=== PATIENT | male | born 1940 | race Caucasian/White ===

== ENCOUNTER 2017-10-02 06:46 | Inpatient (IN) | payer OTHER, MEDICAID ==
[~2017-10-02] VITALS: Ht 162.6 cm; Wt 73.9 kg
[2017-10-02 06:51] VITALS: Ht 162.6 cm; Wt 73.9 kg
[2017-10-02 07:33] LABS: RED CELL DISTRIBUTION WIDTH 14.5 % (11.5-14.5)
[2017-10-02 07:34] LABS: PLATELET COUNT 126 x10^3mcL (130-400)
[2017-10-02 07:46] LABS: CALCIUM 8.1 mg/dL (8.5-10.1); CARBON DIOXIDE 25.6 mmol/L (21-32); CHLORIDE SERUM 102 mmol/L (98-107); CREATININE SERUM 1.3 mg/dL (0.7-1.3); GLUCOSE SERUM 168 mg/dL (74-106); SODIUM SERUM 139 mmol/L (136-145)
[2017-10-02 07:58] LABS: ALBUMIN 3.4 g/dL (3.4-5.0); ALKALINE PHOSPHATASE 122 U/L (46-116); ALT/SGPT 23 U/L (16-63); AST/SGOT 26 U/L (15-37); BILIRUBIN TOTAL 0.6 mg/dL (0.20-1.00); TOTAL PROTEIN, SERUM 7.7 g/dL (6.4-8.2)
[2017-10-02 07:59] LABS: T3 TOTAL 1.63 ng/mL
[2017-10-02 08:00] LABS: CK-MB 2.7 ng/mL (0-3.6)
[2017-10-02 08:01] LABS: C REACTIVE PROTEIN < 0.2 mg/dL (<=0.9)
[2017-10-02 08:42] LABS: ERYTHROCYTE SED RATE 17 mm/hr (0-20)
[2017-10-02 08:51] LABS: CHOLESTEROL/HDL RATIO 2.4; MAGNESIUM 1.3 mg/dL (1.8-2.4); PHOSPHOROUS 4.5 mg/dL (2.5-4.9)
[2017-10-02 08:52] LABS: BAND NEUTROPHIL 1 % (0-10); BASOPHIL 1 % (0-2); MONOCYTE 6 % (0-7); SEGMENTED NEUTROPHILS 55 % (37-75)
[2017-10-02 08:53] LABS: FREE T4 1.17 ng/dL (0.76-1.46); T4(THYROXINE) 9.8 ug/dL (4.7-13.3)
[2017-10-02 08:53] LABS: PLATELET MORPHOLOGY PLATELETS NORMAL
[2017-10-02 09:36] VITALS: BP 126/74
[2017-10-02 10:02] VITALS: BP 136/94
[2017-10-02 12:30] VITALS: BP 136/94
[2017-10-02 18:15] VITALS: BP 143/90
[2017-10-02 21:09] VITALS: BP 117/68
[2017-10-03 05:12] VITALS: BP 114/69
[2017-10-03 06:45] LABS: BASOPHIL % 0.2 % (0-2); RED CELL DISTRIBUTION WIDTH 14.5 % (11.5-14.5)
[2017-10-03 06:51] LABS: PLATELET COUNT 87 x10^3mcL (130-400)
[2017-10-03 07:03] LABS: CALCIUM 8.5 mg/dL (8.5-10.1); CARBON DIOXIDE 22.2 mmol/L (21-32); CHLORIDE SERUM 106 mmol/L (98-107); CREATININE SERUM 1.4 mg/dL (0.7-1.3); GLUCOSE SERUM 162 mg/dL (74-106); POTASSIUM SERUM 4.7 mmol/L (3.5-5.1); SODIUM SERUM 141 mmol/L (136-145)
[2017-10-03 08:36] VITALS: BP 122/62
[2017-10-03 12:28] VITALS: BP 132/70
[2017-10-03 12:39] LABS: UA SPECIFIC GRAVITY 1.025 (1.005-1.035); microscopic required? YES; urine erythrocyte NEGATIVE (NEGATIVE)
[2017-10-03 18:00] VITALS: BP 129/63
[2017-10-03 21:44] VITALS: BP 107/53
[2017-10-04 05:47] VITALS: BP 127/64
[2017-10-04 05:54] LABS: BASOPHIL % 0.1 % (0-2)
[2017-10-04] MEDS ORDERED: IPRATROPIUM BROM3 M2 IH ×2 (05:57→11:01)
[2017-10-04] MEDS ORDERED: PULMICORT0.5 MG/2 M NEB ×2 (05:57→11:01)
[2017-10-04] MEDS ORDERED: XARELTO15 M1 PO (06:00)
[2017-10-04] MEDS ORDERED: PREDNISONE50 MG PO (06:04)
[2017-10-04 06:08] LABS: PLATELET COUNT 82 x10^3mcL (130-400); RED CELL DISTRIBUTION WIDTH 14.8 % (11.5-14.5)
[2017-10-04 08:03] LABS: CALCIUM 8.5 mg/dL (8.5-10.1); CARBON DIOXIDE 23.6 mmol/L (21-32); CHLORIDE SERUM 107 mmol/L (98-107); CREATININE SERUM 1.4 mg/dL (0.7-1.3); GLUCOSE SERUM 139 mg/dL (74-106); POTASSIUM SERUM 4.6 mmol/L (3.5-5.1); SODIUM SERUM 140 mmol/L (136-145)
[2017-10-04 08:44] VITALS: BP 125/70
[2017-10-04 09:54] VITALS: BP 147/79
[2017-10-04] MEDS ORDERED: PHECLUD PO (13:27)
[2017-10-04 14:07] VITALS: BP 151/77
== END 2017-10-04 15:00 | disposition home or self-care (01) | DRG 202 ==
LOC: ED 06:46 → EDBD 06:46 → DU 08:04
PROVIDERS: Family Medicine; Family Medicine Sports Medicine; Specialist
DX: J45.901 Unspecified asthma with (acute) exacerbation (principal); J96.01 Acute respiratory failure with hypoxia; I82.412 Acute embolism and thrombosis of left femoral vein; D68.69 Other thrombophilia; E83.42 Hypomagnesemia; E11.59 Type 2 diabetes mellitus with other circulatory complications; E11.65 Type 2 diabetes mellitus with hyperglycemia; M19.90 Unspecified osteoarthritis, unspecified site; E03.9 Hypothyroidism, unspecified; D69.6 Thrombocytopenia, unspecified; Z68.30 Body mass index [BMI] 30.0-30.9, adult
CPT/HCPCS: 36600; 82962; 83880; 84439; 87804; 90658; 94150; J1644; J1956; J2920; J2930; J3475; J3490; J7030; J7613; J7620; J7626; J7644; Q0092